=== PATIENT | female | born 1945 | race Caucasian/White ===

== ENCOUNTER 2023-12-05 10:52 | Outpatient (AMB) | payer MEDICARE, OTHER, SELFPAY ==
--- NOTE | 2023-12-05 11:02 | MHC.AMNUTRGE ---
Intake VS Expanded 12/05/23 11:03 12/13/23 20:56 Height 5 ft 1 in 5 ft 1 in Weight 162 lb 0.636 oz 162 lb BMI 30.6 30.6 Intake Visit Reasons: Gastritis/CONFIRMED HPI Nutrition Presentation Details Pt presents for MNT for gastritis, Pt also has DM managed as type 2. The Pt was referred by Farhana Gerber, from [facility] Pt reports eating a variety of foods, preparing her own meals. Pt also reports typically getting up in the middle of the time and having snack ( crackers or sand) due to feeling hungry. Lifestyle Emotional Eating Reports comfort/relaxation and boredom Reads food labels Yes Food frequency Dairy: daily (cheese, 2% milk), Fruit: daily (varies ), Vegetables: several times weekly (varies/starchy/non starchy), Grains/pasta/breads/cereal (carbs): daily (choosing whole grains), Meats/poultry/fish (protein): daily (fish twice/wk ), Meat substitutes/nuts/seeds/legumes: occasionally, Processed foods/meats: occasionally, Restaurants/fast foods: occasionally, Desserts/sweets: occasionally, Fats/oils: daily, Water: daily (16 oz/d), Soda: occasionally, Juice: several times weekly, Coffee: several times weekly, Sports/energy drinks: never and Alcohol: never PXN-Dcfhdqg-Hm.Jeor Equation Height 5 ft 1 in Weight 162 lb Resting Metabolic Rate 1157.70 Calculated Activity Level Sedentary Calories Needed to Maintain Weight 1389.24 Diagnosis Nutrition problem #1 food nutri know defi As related to (etiology) #1 diagnosis (gastritis) As evidenced by (sign/symptom) #1 knowledge deficit of diet Most Recent Diabetes Results: No Data to Display [facility] Medical History (Updated 12/13/23 @ 21:10 by Janna Viera, RD, LDN) Diabetes 1.5, managed as type 2 Assessment & Plan Assessment & Plan (1) Gastritis: Code(s): K29.70 - Gastritis, unspecified, without bleeding Plan: Wt: 74 Kg ( 12/2023 ) Est kcal needs as per MSJ: 1400 (40% carb, 30% protein/fat) Est fluid needs as per 30 ml/d: 2200 Est prot per day as per 1 g/kg bw: 74 Recommend fiber intake : 8-10 g per day and gradually increase to 25-28 g per day for women and 35-38 g for men or as tolerated Recommend sodium intake per day : less than 2000 mg Educated patient on: ( R = reviewed V = verbalizes understanding N/R = needs review N/A = not applicable Basic Gastritis reduction diet modifications: reducing acidic foods/beverages, highly processed foods, choose whole grain foods and healthy balanced meals Patient Instructions: Reduce on the following foods : -High fat foods (fried foods, pastries, cheese , gravies , sauces ) Choose baked/steamed poultry, fish, eggs, lean meats, have fruits in place of pastries (apples, pears, horacio, arpitcots), choose low fat broths vs gravies -Caffeine (coffee, energy drinks, teas, chocolate, sodas diet or non diet, foods and beverages with caffeine added) . Choose water, low fat milk , low fat smoothies, oat milk, pea milk -Chocolate -Onions -Peppermint -Carbonated beverages -Alcohol -Athalia and tomato products - Avoid tight clothing Choose a yogurt if getting up at night due to hunger . Monitor your blood sugar at night to assure it isn ot related to low blood sugar. If it is related to low blood sugar and blood sugar is below 70 then treat by having 1/2 cup of applesauce, recheck 15 minutes later and repeat treatment if blood sugar continues below 70. Cotact your doctor and notify of any low blood sugar reactions for further assessment. Coding Level of Care Code Nutr Indiv Intake (07084) Diagnoses Gastritis K29.70 Time Spent (min) 30
[2023-12-05 11:03] VITALS: BMI 30.6
[2023-12-13 20:56] VITALS: BMI 30.6
== END 2023-12-05 11:36 | disposition home or self-care (01) ==
PROVIDERS: Visit Provider Dietitian, Registered
DX: K29.70 Gastritis, unspecified, without bleeding (principal)

== ENCOUNTER → 2023-12-05 10:52 | Outpatient (BNVA) | payer MEDICARE, OTHER, SELFPAY | PROVIDERS: Visit Provider Dietitian, Registered | DX: K29.70 Gastritis, unspecified, without bleeding (principal); E11.9 Type 2 diabetes mellitus without complications; Z71.3 Dietary counseling and surveillance | CPT/HCPCS: 97802 ==

== ENCOUNTER 2024-01-16 12:39 | Outpatient (AMB) | payer MEDICARE, OTHER, SELFPAY ==
[2024-01-16 12:44] VITALS: BMI 30.5
--- NOTE | 2024-01-16 12:44 | A.OFFVIS_ITS ---
VS Expanded 01/16/24 12:44 Height 5 ft 1 in Weight 161 lb 6.054 oz BMI 30.5 Intake Visit Reasons: GERD/CONFIRMED Nutrition Presentation Details: Pt presents for MNT f/u for gastritis Pt reports doing well, working on diet modification and reports feeing good, much less gastritis symptoms BS Monitoring Most Recent Diabetes Results: No Data to Display [facility] Medical History (Updated 12/13/23 @ 21:10 by Janna Viera, RD, LDN) Diabetes 1.5, managed as type 2 Assessment & Plan Assessment & Plan (1) Gastritis: Code(s): K29.70 - Gastritis, unspecified, without bleeding Category: Medical Plan: Wt: 74 Kg ( 12/2023 ) 73 kg (01/2024) Est kcal needs as per MSJ: 1400 (40% carb, 30% protein/fat) Est fluid needs as per 30 ml/d: 2200 Est prot per day as per 1 g/kg bw: 74 Recommend fiber intake : 8-10 g per day and gradually increase to 25-28 g per day for women and 35-38 g for men or as tolerated Recommend sodium intake per day : less than 2000 mg Educated patient on: ( R = reviewed V = verbalizes understanding N/R = needs review N/A = not applicable * Basic Gastritis reduction diet modifications: reducing acidic foods/beverages, highly processed foods, choose whole grain foods and healthy balanced meals Patient Instructions: Reduce on portion and frequency of high fat foods (cheese sauces, creams foods with cheese , pastries ) include fish at least twice week keep hydrated , carry water bottle with you Coding Level of Care Code Nutr Indiv Subseq (64597) Diagnoses Gastritis K29.70 Time Spent (min) 25
== END 2024-01-16 13:04 | disposition home or self-care (01) ==
PROVIDERS: Visit Provider Dietitian, Registered
DX: K29.70 Gastritis, unspecified, without bleeding (principal)

== ENCOUNTER → 2024-01-16 12:39 | Outpatient (BNVA) | payer MEDICARE, OTHER, SELFPAY | PROVIDERS: Visit Provider Dietitian, Registered | DX: K29.70 Gastritis, unspecified, without bleeding (principal); Z71.3 Dietary counseling and surveillance | CPT/HCPCS: 97803 ==